=== PATIENT | male | born 1975 | race Caucasian/White ===

== ENCOUNTER 2018-07-31 15:56 | Emergency (ER) | payer OTHER ==
[~2018-07-31] VITALS: Ht 170.2 cm; Wt 83.2 kg
[2018-07-31 16:00] VITALS: BP 150/86; PULSE 98; RESP 17; Ht 170.2 cm; Wt 83.2 kg
[2018-07-31] MEDS ORDERED: LIDOCAINE 1% (MDV) 10 ML INJ INJ STA (18:09)
[2018-07-31] MEDS ORDERED: LIDOCAINE 1% (MDV) 20 ML INJ INJ SCH (18:30)
[2018-07-31] MEDS ORDERED: SULF1TAB31 PO (19:12)
[2018-07-31] MEDS ORDERED: CEPH-443 PO (19:12)
[2018-07-31] MEDS ORDERED: IBUP-1542 PO (19:13)
--- NOTE | 2018-08-02 00:56 | ERD ---
ER Documentation Chief Complaint Chief Complaint abscess in buttocks x 3 days HPI Pt is a 42 year old [place]araguan speaking M with PMHx of diabetes mellitus who presents to the ED with complaints of progressively enlarging and painful "bump" near his anal cleft for the past 5 days. Pain is sharp, 7/10 in intensity and wo rse when sitting or bending. Pt states he had a similar presentation 2 years that "popped" on its own without intervention. Bump today is larger and more painful. Denies any drainage or pruritis. Denies any fevers or chills. Denies any constipation, straining, hematochezia, rectal bleeding, dysuria, frequency, urgency or any other symptoms. Pt has been taking Tylenol with temporary relief of his pain. ROS All systems reviewed and are negative except as per history of present illness. Medications Home Meds Active Scripts Ibuprofen* (Motrin*) 600 Mg Tab, 600 MG PO Q6 for pain, #30 TAB Prov:DISHIGRIKIAN,ZEPYUR N PA-C 07/31/18 Cephalexin* (Keflex*) 500 Mg Capsule, 500 MG PO QID for 7 Days, CAP Prov:DISHIGRIKIAN,ZEPYUR N PA-C 07/31/18 Sulfamethoxazole/Trimethoprim* (Bactrim Ds* Tablet) 1 Each Tablet, 1 TAB PO DAILY, #7 TAB Prov:DISHIGRIKIAN,ZEPYUR N PA-C 07/31/18 Allergies Allergies: Coded Allergies: No Known Allergy (Unverified , 07/31/18) PMhx/Soc Medical and Surgical Hx: pt denies Medical Hx, pt denies Surgical Hx Hx Alcohol Use: No Hx Substance Use: No Hx Tobacco Use: No Smoking Status: Never smoker Physical Exam Vitals Vital Signs Date Temp Pulse Resp B/P (MAP) Pulse Ox O2 O2 Flow FiO2 Time Delivery Rate 07/31/18 98.3 98 17 150/86 97 16:00 (107) Physical Exam Const: No acute distress Head: Atraumatic Eyes: Normal Conjunctiva ENT: Normal External Ears, Nose and Mouth. Skin: + palpable tender 3cm fluctuant mass near the top right cleft with surrounding erythema. Ext: Full ROM all extremities Neur: Awake and alert Psych: Normal Mood and Affect Results 24 hrs Current Medications Medications Dose Sig/Oscar Start Time Status Last (Trade) Ordered Route PRN Stop Time Admin Dose Reason Admin Lidocaine 10 ml ONCE STAT 07/31/18 Cancel HCl INJ 18:09 (Lidocaine 07/31/18 18:10 1% (Mdv) 10 ml) Lidocaine 10 ml NOW INJ 07/31/18 DC (Xylocaine 18:30 1% (Mdv) 20 07/31/18 18:31 ml) Procedures/MDM Abscess Incision and Drainage with irrigation by me: Location: Top right cleft Anesthesia: Local 1% lidocaine with epi Technique: Irrigated, disrupted loculations with instrumentation Packin/4 inch iodoform gauze Complications Neurovascularly intact post procedure 48 hour wound check. Scar minimization instructions given. EMERGENCY DEPARTMENT COURSE / MEDICAL DECISION MAKING: Pt is a 42 year old M with history of diabetes mellitus who presents with a pilonidal abscess. Sterile precautions measures were taken and abscess was in cision and drained as above. Small amount of purulent material was expressed. I suspect patient has residual scar tissue from his previous abscess 2 years ago not allowing for appropriate drainage of his current abscess. Wound was packed with small amount of gauze and covered with sterile dressing. He was instructed to keep the wound clean, dry and covered for the next 2 days. He given a prescription for Bactrim, Keflex and Ibuprofen and told to return in 48 hours for wound recheck. Return to the ED for any new or worsening symptoms. No signs of signs sepsis, deep space infection or foreign body. Prior to discharge, patients vital signs have been reviewed Patient's blood pressure was elevated (>120/80) but appears stable without evidence of hypertension emergency or urgency. The patient was counseled about the risks of hypertension and urged to pursue outpatient monitoring and therapy within a week with their primary care physician Departure Diagnosis: Primary Impression: Pilonidal abscess Additional Impression: History of diabetes mellitus Condition: Stable Patient Instructions: Abscess Drainage [facility] Usted se handley hecho un examen mdico de control que le indica que no est en oracio condicin que requiera tratamiento urgente en el Departamento de Emergencia. Un estudio ms profundo y el tratamiento de de la o condicin pueden esperar sin ningn riesgo hasta que usted sea atendida/o en el consultorio de de la o mdico o oracio clnica. Es responsabilidad suya arreglar oracio albert para el seguimiento del myla. MANEJO DE CONDICIONES NO URGENTES EN EL FUTURO 1) Si usted tiene un mdico de atencin primaria: Usted debera llamar a de la o mdico de atencin primaria antes de venir al departamento de emergencia. Despus de las horas de consultorio, de la o doctor o de la o asociado/a est disponible por telfono. El mdico o enfermero de kapil en el servicio telefnico puede asesorarle por floyd medio para atender el problema, o myla contrario se puede programar oracio albert. 2) Si usted no tiene un mdico de atencin primaria: Llame al mdico o clnica de referencia que aparece abajo chet las horas de consultorio para hacer oracio albert para que le vean. CLINICAS: [facility] [phone] [facility] [phone] [facility]. [facility] [phone] [address] [facility]. [place] [phone] [facility]. [facility] [phone] [address] [facility]. [phone] [address] [facility]. [facility] YOU HAVE RECEIVED A MEDICAL SCREENING EXAM AND THE RESULTS INDICATE THAT YOU DO NOT HAVE A CONDITION THAT REQUIRES URGENT TREATMENT IN THE EMERGENCY DEPARTMENT. FURTHER EVALUATION AND TREATMENT OF YOUR CONDITION CAN WAIT UNTIL YOU ARE SEEN IN YOUR DOCTORS OFFICE WITHIN THE NEXT 1-2 DAYS. IT IS YOUR RESPONSIBILITY TO MAKE AN APPOINTMENT FOR FOLOW-UP CARE. IF YOU HAVE A PRIMARY DOCTOR --you should call your primary doctor and schedule an appointment IF YOU DO NOT HAVE A PRIMARY DOCTOR YOU CAN CALL OUR PHYSICIAN REFERRAL HOTLINE AT IF YOU CAN NOT AFFORD TO SEE A PHYSICIAN YOU CAN CHOSE FROM THE FOLLOWING [facility] [address] [facility] [address] [facility] [facility] [address] [facility] [facility] [address] [facility]. [facility] [address] [facility] [address] Additional Instructions: Please return in 2 days for wound recheck. Take the antibiotics as prescribed. Return sooner for any new or worsening symptoms. SOLOMON VICENTE PA-C Aug 02, 2018 00:01
== END 2018-07-31 19:22 | disposition home or self-care (01) ==
LOC: FTE 15:56
DX: L05.01 Pilonidal cyst with abscess (principal); E11.9 Type 2 diabetes mellitus without complications
CPT/HCPCS: 10080; Z7502; Z7610

== ENCOUNTER 2018-08-10 17:06 | Emergency (ER) | payer OTHER ==
[~2018-08-10] VITALS: Wt 83.6 kg
[~2018-08-10 17:06] MED LIST: CEPH-443 PO; IBUP-1542 PO; SULF1TAB31 PO
[2018-08-10 17:25] VITALS: BP 129/82; PULSE 81; RESP 18
--- NOTE | 2018-08-10 18:06 | ERD ---
ER Documentation Chief Complaint Chief Complaint recheck: seen 07/31 for macy rectal abscess. denies new symptoms HPI 42-year-old male presents for recheck on a perianal abscess drained appr oximately 9 days ago. He has no pain. Denies fevers, vomiting, significant bleeding or discharge. He is taking unspecified antibiotics. ROS All systems reviewed and are negative except as per history of present illness. Medications Home Meds Active Scripts Ibuprofen* (Motrin*) 600 Mg Tab, 600 MG PO Q6 for pain, #30 TAB Prov:DISHIGRIKIAN,ZEPYUR N PA-C 07/31/18 Cephalexin* (Keflex*) 500 Mg Capsule, 500 MG PO QID for 7 Days, CAP Prov:DISHIGRIKIAN,ZEPYUR N PA-C 07/31/18 Sulfamethoxazole/Trimethoprim* (Bactrim Ds* Tablet) 1 Each Tablet, 1 TAB PO DAILY, #7 TAB Prov:DISHIGRIKIAN,ZEPYUR N PA-C 07/31/18 Allergies Allergies: Coded Allergies: No Known Allergy (Unverified , 07/31/18) PMhx/Soc Medical and Surgical Hx: pt denies Medical Hx, pt denies Surgical Hx Hx Alcohol Use: No Hx Substance Use: No Hx Tobacco Use: No FmHx Family History: No diabetes, No coronary disease, No other Physical Exam Vitals Vital Signs Date Temp Pulse Resp B/P (MAP) Pulse Ox O2 O2 Flow FiO2 Time Delivery Rate 08/10/18 98.0 81 18 129/82 98 17:25 (98) Physical Exam Const: No acute distress Head: Atraumatic Eyes: Normal Conjunctiva ENT: Normal External Ears, Nose and Mouth. Neck: Full range of motion. No meningismus. Resp: Clear to auscultation bilaterally Cardio: Regular rate and rhythm, no murmurs Abd: Soft, non tender, non distended. Normal bowel sounds. Healing anal abscess which is currently closed. No residual gauze appreciated. Skin: No petechiae or rashes Back: No midline or flank tenderness Ext: No cyanosis, or edema Neur: Awake and alert Psych: Normal Mood and Affect Procedures/MDM Patient presents for recheck on perianal abscess. Gauze appears to fallen out. There is no evidence of recurrent abscess, signs of cellulitis, necrotizing fasciitis, complications of incision and drainage. Will be discharged home with instructions to continue antibiotics, return for worsening redness, fevers, new or worsening symptoms. Departure Diagnosis: Primary Impression: Abscess Condition: Stable Patient Instructions: Macy-Anal Abscess, I And D Additional Instructions: esta curando ben. Cheque otro vez con de la o doctor primario en el proximo chen or regresa para mas o nueva simptomas. CHARLIE ARCHIBALD MD Aug 10, 2018 18:06
== END 2018-08-10 18:35 | disposition home or self-care (01) ==
LOC: FTE 17:06
DX: K61.1 Rectal abscess (principal)
CPT/HCPCS: 99281